=== PATIENT | female | born 1960 | race Caucasian/White ===

== ENCOUNTER 2016-12-02 05:30 | Emergency (ER) | payer BC ==
[~2016-12-02] VITALS: Ht 165.1 cm; Wt 115.7 kg
[2016-12-02] MEDS ORDERED: SING10TA32 PO (05:42)
[2016-12-02] MEDS ORDERED: PROZ40CA PO (05:42)
[2016-12-02] MEDS ORDERED: IBUP800T23 PO (05:42)
[2016-12-02] MEDS ORDERED: PRED20TA PO (06:01)
[2016-12-02] MEDS ORDERED: NS 1,000 ML IV ONE (06:15)
[2016-12-02] MEDS ORDERED: MECLIZINE 25 MG TABLET PO ONE (06:15)
[2016-12-02 06:42] LABS: BASO % 0.2 % (0.0-1.0); EOS # 0.1 K/mm3 (0.0-0.50); EOS % 0.9 % (0.0-3.0); LARGE UNSTAINED CELL # 0.1 K/mm3 (0.0-0.4); LARGE UNSTAINED CELL % 0.7 % (0.0-4.0); LYMPH # 0.9 K/mm3 (1.5-4.5); LYMPH % 8.8 % (24.0-44.0); MEAN CORPUSCULAR HEMOGLOBIN 28.2 pg (27.0-33.0); MEAN CORPUSCULAR HGB CONC 32.5 g/dl (32.0-36.5); MEAN CORPUSCULAR VOLUME 86.5 fl (80.0-96.0); MONO # 0.3 K/mm3 (0.0-0.8); MONO % 3.2 % (0.0-5.0); NEUTROPHILS # 8.8 K/mm3 (1.8-7.7); NEUTROPHILS % 86.2 % (36.0-66.0); PLATELET COUNT, AUTOMATED 278 k/mm3 (150-450); RED CELL DISTRIBUTION WIDTH 13.3 % (11.5-14.5); WHITE BLOOD COUNT 10.2 K/mm3 (4.0-10.0)
[2016-12-02 07:05] LABS: ANION GAP 7 MEQ/L (8-16); BLOOD UREA NITROGEN 13 MG/DL (7-18); CALCIUM LEVEL 8.7 MG/DL (8.5-10.1); CARBON DIOXIDE LEVEL 26 MEQ/L (21-32); CHLORIDE LEVEL 104 MEQ/L (98-107); CREATININE FOR GFR 0.71 MG/DL (0.55-1.02); GLOMERULAR FILTRATION RATE > 60.0 (>51); GLUCOSE, FASTING 115 MG/DL (70-105); POTASSIUM SERUM 3.7 MEQ/L (3.5-5.1); SODIUM LEVEL 137 MEQ/L (136-145)
[2016-12-02] MEDS ORDERED: MECL-68 PO (07:28)
[2016-12-02 07:42] VITALS: BP 171/82
--- NOTE | 2016-12-03 08:20 | ECGEPIP ---
Stationary ECG Study [facility] - ED Test Date: 2016-12-02 Pat Name: JAZLYN SHAH Department: Room: - Gender: F [place]: [place] : 1960 Requested By: RICK Bowles PA-C Order Number: [id number] Reading MD: Laina Aldana Measurements Intervals [place] Rate: 58 P: 19 W[place]: 185 QRS: -19 QRSD: 100 T: 3 QT: 412 QTc: 407 Interpretive Statements SINUS BRADYCARDIA VOLTAGE CRITERIA FOR LVH Electronically Signed On 12-03-2016 8:20:03 EDT by Laina Aldana
== END 2016-12-02 07:45 | disposition home or self-care (01) ==
LOC: EDBD 05:30 → M ED 06:08
DX: H81.399 Other peripheral vertigo, unspecified ear (principal); G51.0 Bell's palsy; J45.909 Unspecified asthma, uncomplicated; F32.9 Major depressive disorder, single episode, unspecified; Z88.2 Allergy status to sulfonamides; Z79.899 Other long term (current) drug therapy; I83.90 Asymptomatic varicose veins of unspecified lower extremity; K21.9 Gastro-esophageal reflux disease without esophagitis; M54.9 Dorsalgia, unspecified

== ENCOUNTER 2017-01-24 05:04 | Emergency (ER) | payer BC ==
[~2017-01-24] VITALS: Ht 162.6 cm; Wt 113.4 kg
[~2017-01-24 05:04] MED LIST: IBUP800T23 PO; MECL-68 PO; PRED20TA PO; PROZ40CA PO; SING10TA32 PO
[2017-01-24] MEDS ORDERED: CYCL10TA PO (05:14)
[2017-01-24] MEDS ORDERED: LEVE250T5 PO (05:14)
[2017-01-24] MEDS ORDERED: KETOROLAC 60 MG/2 ML VIAL (J1885) IM ONE (06:30)
[2017-01-24] MEDS ORDERED: VALI5TAB PO (07:08)
[2017-01-24] MEDS ORDERED: NAPR500T PO (07:08)
[2017-01-24 07:50] VITALS: BP 174/81
== END 2017-01-24 07:50 | disposition home or self-care (01) ==
LOC: M ED 06:21
DX: S29.012A Strain of muscle and tendon of back wall of thorax, initial encounter (principal); X58.XXXA Exposure to other specified factors, initial encounter; Y92.89 Other specified places as the place of occurrence of the external cause; Y93.89 Activity, other specified; Y99.9 Unspecified external cause status
CPT/HCPCS: 96372; 99283; J1885; J3360

== ENCOUNTER → 2017-01-26 | Outpatient (CLI) | payer BC ==
[~2017-01-26] MED LIST changes: +CYCL10TA PO; +LEVE250T5 PO; +NAPR500T PO; +VALI5TAB PO
--- NOTE | 2017-01-26 09:47 | REP ---
CHEST, TWO VIEWS: HISTORY: Lung nodule. COMPARISON: 08/18/2006 There is elevation of the right hemidiaphragm. The lungs are clear. The heart is upper limits of normal in size. The pulmonary vasculature is normal in appearance. The bony structure is intact. There is scoliosis of the upper thoracic spine convex to the left and mid and lower thoracic spine convex to the right. IMPRESSION: No acute disease. Signed by Efe Ingram MD 01/26/2017 10:07 A
== END ==
LOC: M WUC 08:01
PROVIDERS: ATTEND Physician Assistant Medical
DX: M41.9 Scoliosis, unspecified (principal)

== ENCOUNTER → 2017-03-03 | Outpatient (REF) | payer BC ==
[~2017-03-03] MED LIST changes: +IBUP1TAB7 PO; -IBUP800T23 PO
[2017-03-03 10:43] LABS: BASO % 0.1 % (0.0-1.0); EOS # 0.2 K/mm3 (0.0-0.50); EOS % 2.9 % (0.0-3.0); LARGE UNSTAINED CELL # 0.1 K/mm3 (0.0-0.4); LYMPH # 1.4 K/mm3 (1.5-4.5); LYMPH % 18.3 % (24.0-44.0); MEAN CORPUSCULAR HEMOGLOBIN 28.9 pg (27.0-33.0); MEAN CORPUSCULAR HGB CONC 33.5 g/dl (32.0-36.5); MEAN CORPUSCULAR VOLUME 86.4 fl (80.0-96.0); MONO # 0.3 K/mm3 (0.0-0.8); MONO % 3.8 % (0.0-5.0); NEUTROPHILS # 5.2 K/mm3 (1.8-7.7); NEUTROPHILS % 73.9 % (36.0-66.0); PLATELET COUNT, AUTOMATED 272 k/mm3 (150-450); RED CELL DISTRIBUTION WIDTH 13.5 % (11.5-14.5)
[2017-03-03 11:29] LABS: ERYTHROCYTE SEDIMENTATION RATE 26 mm/hr (0-30)
== END ==
LOC: M LABDRAW1 09:39
PROVIDERS: ATTEND Physician Assistant
DX: M51.36 Other intervertebral disc degeneration, lumbar region (principal)

== ENCOUNTER → 2017-08-30 | Outpatient (CLI) | payer BC | LOC: M WUC 08:58 | DX: R19.4 Change in bowel habit (principal); M41.85 Other forms of scoliosis, thoracolumbar region | CPT/HCPCS: 74018 ==

== ENCOUNTER 2018-01-23 07:34 | Day surgery (SDC) | payer BC ==
[2018-01-23] MEDS: NS 1,000 ML IV (07:45)
[2018-01-23] MEDS ORDERED: fentaNYL 100 MCG/2 ML INJECTION (J3010) As Ordered (09:11)
[2018-01-23] MEDS ORDERED: PROPOFOL 200 MG/20 ML VIAL As Ordered ×3 (09:37→09:40)
[2018-01-23] MEDS ORDERED: LIDOCAINE 2% INJ 100 MG/5 ML SDV (FOR ANES.) As Ordered (09:40)
== END 2018-01-23 10:22 | disposition home or self-care (01) ==
LOC: M OPP 07:34
DX: Z12.11 Encounter for screening for malignant neoplasm of colon (principal); D12.0 Benign neoplasm of cecum; D12.2 Benign neoplasm of ascending colon; K62.1 Rectal polyp; K64.8 Other hemorrhoids; K21.9 Gastro-esophageal reflux disease without esophagitis; K29.70 Gastritis, unspecified, without bleeding; K59.00 Constipation, unspecified; R19.7 Diarrhea, unspecified; M19.90 Unspecified osteoarthritis, unspecified site; F41.9 Anxiety disorder, unspecified; F32.9 Major depressive disorder, single episode, unspecified; R42 Dizziness and giddiness; J45.909 Unspecified asthma, uncomplicated; Z88.2 Allergy status to sulfonamides; Z79.899 Other long term (current) drug therapy
CPT/HCPCS: 45385

== ENCOUNTER → 2018-09-20 | Outpatient (CLI) | payer BC ==
[~2018-09-20] MED LIST changes: +DULO1CAP2 PO; +ESOM1CAP5 PO; +GABA-843 PO; +LORA0.5T11 PO; +NAPR-50 PO; -NAPR500T PO; +PROAAER10 INH
--- NOTE | 2018-09-20 21:51 | REP ---
Clinical: Symptoms related to atherosclerotic disease with cold foot. Technique: Real time smith scale and color Doppler evaluation of the bilateral lower extremity arterial vasculature using linear high frequency transducer. Findings: Smith scale and color images demonstrate mild age-related changes without focal stenosis identified. Doppler interrogation demonstrates normal triphasic arterial wave forms and velocities bilaterally. Left lower extremity demonstrates subcutaneous edema. Right ankle brachial index: 0.9 Left ankle brachial index: Could not be obtained due to diffuse edema. Peak systolic velocities (cm/sec) RIGHT LEFT Common femoral artery 105.8 101.1 Profunda femoris 64.8 65.5 SFA (proximal) 105.3 106.6 SFA (mid) 101.3 111.6 SFA (distal) 99.2 101.6 Popliteal artery 63.8 85.3 KATIE (prox.) 63.4 67.3 Tibioperoneal trunk 56.4 75.0 PAINTER ASSISTANT (prox.) 66.2 60.5 PAINTER ASSISTANT (distal) 100.8 90.9 KATIE (distal) 88.2 53.1 Impression: 1. Left lower extremity edema. 2. Normal bilateral triphasic arterial wave patterns and velocities without evidence for stenosis or occlusion. Electronically Signed by Juma Landaverde MD 09/20/2018 09:42 P
== END ==
LOC: M RAD 09:57
PROVIDERS: ATTEND Nurse Practitioner Family
DX: R60.0 Localized edema (principal)

== ENCOUNTER → 2018-10-09 | Outpatient (CLI) | payer BC ==
--- NOTE | 2018-10-09 12:18 | REP ---
PA and lateral chest: Comparison is 01/26/2017. Lung cannon are clear. Cardiac size is enlarged, unchanged. There is thoracic scoliosis convex right in the mid and lower thoracic areas, unchanged. There is chronic elevation of the right hemidiaphragm, unchanged, likely eventration. The amada, mediastinum, skeletal structures are unremarkable. Impression: Chronic cardiomegaly. Otherwise, negative PA and lateral chest. Electronically Signed by Jan Hoyos MD 10/09/2018 12:11 P
== END ==
LOC: M WUC 11:50
PROVIDERS: ATTEND Physician Assistant
DX: I51.7 Cardiomegaly (principal); J98.6 Disorders of diaphragm; M41.25 Other idiopathic scoliosis, thoracolumbar region

== ENCOUNTER → 2018-10-18 | Outpatient (CLI) | payer BC ==
[~2018-10-18] MED LIST changes: +METHACHOLINE KIT (J7674) INH ONE
--- NOTE | 2018-10-18 09:40 | PFTRPT ---
Height: 64.00 Inches Weight: 270.00 Lbs BSA: 2.22 Diagnosis: R06.00 DATE OF PROCEDURE: 10/18/2018 ORDERED BY: BOONE Luque INTERPRETATION: Study of excellent technical quality. Under protocol, methacholine was administered. At a dose of 2.5 mg or 13.875 CDUs, a 33% decline in the FEV1 was noted. PC of 0.42 is significant. Flow rates did return to baseline post bronchodilator administration. IMPRESSION: Positive methacholine challenge study. MTDD
== END ==
LOC: M CARPUL 08:35
PROVIDERS: ATTEND Physician Assistant
DX: R06.00 Dyspnea, unspecified (principal)
CPT/HCPCS: 94070; J7674

== ENCOUNTER → 2018-11-14 | Outpatient (REF) | payer BC ==
[~2018-11-14] MED LIST changes: -METHACHOLINE KIT (J7674) INH ONE
[2018-11-14 14:09] LABS: BASO % 0.4 % (0.0-1.0); EOS # 0.3 10^3/uL (0.0-0.50); EOS % 3.3 % (0.0-3.0); HEMATOCRIT 40.6 % (36.0-47.0); HEMOGLOBIN 12.5 g/dl (12.0-15.5); LYMPH # 1.3 10^3/uL (1.5-4.5); LYMPH % 15.6 % (24.0-44.0); MEAN CORPUSCULAR HEMOGLOBIN 27.4 pg (27.0-33.0); MEAN CORPUSCULAR HGB CONC 30.8 g/dl (32.0-36.5); MONO # 0.5 10^3/uL (0.0-0.8); MONO % 5.6 % (0.0-5.0); NEUTROPHILS # 5.9 10^3/uL (1.8-7.7); NEUTROPHILS % 74.3 % (36.0-66.0); PLATELET COUNT, AUTOMATED 300 10^3/uL (150-450); RED BLOOD COUNT 4.56 10^6/uL (4.00-5.40)
[2018-11-19 00:07] LABS: D001-IgE D pteronyssinus <0.10 kU/L (Class 0); E001-IgE Cat Epith/Dander < 0.10 kU/L (Class 0); E005-IgE Dog Dander < 0.10 kU/L (Class 0); G002-IgE Bermuda Grass < 0.10 kU/L (Class 0); G008-IgE Kentucky Bluegrass < 0.10 kU/L (Class 0); M001-IgE Penicillium chrysogen < 0.10 kU/L (Class 0); M002 IgE Cladosporium herbaru < 0.10 kU/L (Class 0); M003 IgE Aspergillus fumigatu < 0.10 kU/L (Class 0); M006-IgE Alternaria alternata < 0.10 kU/L (Class 0); T001-IgE Maple/Box Elder < 0.10 kU/L (Class 0); T003-IgE Common Silver Birch < 0.10 kU/L (Class 0); T006-IgE Cedar, Mountain < 0.10 kU/L (Class 0); T007-IgE Oak, White < 0.10 kU/L (Class 0); T008-IgE Elm, American < 0.10 kU/L (Class 0); T015-IgE Ash, White < 0.10 kU/L (Class 0); T041-IgE Hickory, White < 0.10 kU/L (Class 0); T070-IgE White Mulberry < 0.10 kU/L (Class 0); W001-IgE Ragweed, Short < 0.10 kU/L (Class 0); W009-IgE Plantain, English < 0.10 kU/L (Class 0); W014-IgE Pigweed, Rough < 0.10 kU/L (Class 0); W018-IgE Sheep Sorrel < 0.10 kU/L (Class 0)
== END ==
LOC: M LAB REF 13:08
PROVIDERS: ATTEND Internal Medicine Pulmonary Disease
DX: J45.40 Moderate persistent asthma, uncomplicated (principal)

== ENCOUNTER 2018-11-25 08:30 | Emergency (ER) | payer BC ==
[~2018-11-25] VITALS: Ht 160 cm; Wt 120.9 kg
[~2018-11-25 08:30] MED LIST changes: -NAPR-50 PO; +NAPR-837 PO
[2018-11-25] MEDS ORDERED: OMEP40CA2 (08:40)
[2018-11-25] MEDS ORDERED: BREO1INH3 (08:40)
[2018-11-25] MEDS ORDERED: ONDA4TAB6 (08:40)
[2018-11-25] MEDS ORDERED: ACET500T15 PO (08:40)
[2018-11-25] MEDS ORDERED: ENOX40IN3 (08:40)
[2018-11-25] MEDS ORDERED: FLUT22IN (08:40)
[2018-11-25] MEDS ORDERED: NS 1,000 ML IV ONE (09:00)
[2018-11-25 09:27] LABS: BASO % 0.3 % (0.0-1.0); EOS # 0.2 10^3/uL (0.0-0.50); EOS % 1.8 % (0.0-3.0); HEMATOCRIT 38.1 % (36.0-47.0); HEMOGLOBIN 12.3 g/dl (12.0-15.5); LYMPH # 1.5 10^3/uL (1.5-4.5); LYMPH % 12.7 % (24.0-44.0); MEAN CORPUSCULAR HEMOGLOBIN 27.8 pg (27.0-33.0); MEAN CORPUSCULAR HGB CONC 32.3 g/dl (32.0-36.5); MEAN CORPUSCULAR VOLUME 86.2 fl (80.0-96.0); MONO # 0.8 10^3/uL (0.0-0.8); MONO % 6.6 % (0.0-5.0); NEUTROPHILS # 9.1 10^3/uL (1.8-7.7); NEUTROPHILS % 77.8 % (36.0-66.0); PLATELET COUNT, AUTOMATED 286 10^3/uL (150-450); RED BLOOD COUNT 4.42 10^6/uL (4.00-5.40); WHITE BLOOD COUNT 11.7 10^3/uL (4.0-10.0)
[2018-11-25] MEDS: GASTROGRAFIN SOLUTION 30ML PO SCH ×2 (09:30→10:28)
[2018-11-25 09:37] LABS: INR 1.05; PROTHROMBIN TIME 13.8 SECONDS (12.1-14.4)
[2018-11-25 09:38] LABS: PARTIAL THROMBOPLASTIN TIME 32.9 SECONDS (25.4-37.6)
[2018-11-25 09:56] LABS: ALBUMIN 3.3 GM/DL (3.2-5.2); ALT/SGPT 33 U/L (12-78); AMYLASE 21 U/L (25-115); BILIRUBIN,DIRECT 0.4 MG/DL (0.0-0.2); BILIRUBIN,TOTAL 1.2 MG/DL (0.2-1.0); BLOOD UREA NITROGEN 16 MG/DL (7-18); CALCIUM LEVEL 8.4 MG/DL (8.5-10.1); CARBON DIOXIDE LEVEL 24 MEQ/L (21-32); CHLORIDE LEVEL 102 MEQ/L (98-107); CREATININE FOR GFR 0.84 MG/DL (0.55-1.30); GLOMERULAR FILTRATION RATE > 60.0 (>51); GLUCOSE, FASTING 77 MG/DL (70-100); LIPASE 83 U/L (73-393); POTASSIUM SERUM 3.6 MEQ/L (3.5-5.1); SODIUM LEVEL 137 MEQ/L (136-145); TOTAL PROTEIN 7.3 GM/DL (6.4-8.2)
[2018-11-25] MEDS ORDERED: ISOVUE-370 76% 125ML VIAL (Q9967 PER ML) As Ordered ONE (10:51)
--- NOTE | 2018-11-25 11:38 | REP ---
Clinical: Lower abdominal pain. Technique: Axial contrast enhanced images from the lung bases to the pubic symphysis using oral and 100 ml Isovue 370 intravenous contrast material with coronal and sagittal re-formations. Comparison: None. Findings: The distal sigmoid colon within the deep pelvis demonstrates mural thickening and pericolonic inflammatory stranding as well as suspected abscess measuring 9.2 cm maximal diameter within the adjacent deep posterior cul-de-sac extending between in the rectum and residual vaginal cuff (images 101 - 135). Liver, spleen, gallbladder, bilateral adrenal glands and kidneys are normal. Spleen demonstrates innumerable hypodensities which require further investigation and include both infectious as well as neoplastic etiologies. The patient is noted to be status post gastric bypass surgery and hysterectomy. The remainder of the small and large bowel is grossly unremarkable. Chronic-appearing postsurgical changes in the periumbilical subcutaneous tissue noted. No ascites. No free air. No significant adenopathy. Abdominal aorta and vasculature without aneurysm or dissection. Osseous structures are intact. Lung bases demonstrate nonspecific fiber atelectatic changes in the left base as well as 2 mm nodule in the periphery of the right lower lobe (image 6). Impression: 1. Focal infectious/inflammatory changes involving the distal sigmoid colon to the rectosigmoid junction with 9.2 cm fluid collection suggesting abscess as detailed above. 2. Spleen demonstrates innumerable rounded hypodense lesions up to approximately 2 cm. No prior examinations available for comparison. Differential include both infectious as well as neoplastic etiologies. Follow-up is recommended. 3. Further chronic changes as described above. 4. Findings at the lung bases including noncalcified nodule in the periphery of the right lower lobe warrants short-term follow-up contrast enhanced chest CT for further investigation. Electronically Signed by Juma Landaverde MD 11/25/2018 11:30 A
[2018-11-25] MEDS ORDERED: PIPERACILLIN/TAZOBACTAM SOD 3.375 GM in D5W MINI-BAG PLUS 50 ML IV ONE (11:45)
[2018-11-25] MEDS ORDERED: MORPHINE 4 MG/ML 1ML VIAL/SYRINGE (J2270) IV ONE ×2 (11:45→14:15)
[2018-11-25 14:45] VITALS: BP 129/60
== END 2018-11-25 14:55 | disposition short-term general hospital (02) ==
LOC: M ED 08:30
DX: K63.0 Abscess of intestine (principal); K95.89 Other complications of other bariatric procedure; T81.40XA Infection following a procedure, unspecified, initial encounter; J45.909 Unspecified asthma, uncomplicated; F33.9 Major depressive disorder, recurrent, unspecified; F41.9 Anxiety disorder, unspecified; K21.9 Gastro-esophageal reflux disease without esophagitis; Z79.51 Long term (current) use of inhaled steroids; Z79.899 Other long term (current) drug therapy; Z88.2 Allergy status to sulfonamides; Z88.1 Allergy status to other antibiotic agents
CPT/HCPCS: 36415; 74177; 80048; 80076; 81001; 82150; 83605; 83690; 85025; 85610; 85730; 87086; 96365; 96366; 96375; 96376; 99284; J2270; J2543; Q9963; Q9967

== ENCOUNTER → 2018-12-05 | Outpatient (CLI) | payer BC ==
[~2018-12-05] MED LIST changes: +ACET500T15 PO; +BREO1INH3; +ENOX40IN3; +FLUT22IN; +GASTROGRAFIN SOLUTION 30ML (Q9963) As Ordered ONE; +ISOVUE-370 76% 100ML VIAL (Q9967) As Ordered ONE; +OMEP40CA2; +ONDA4TAB6
--- NOTE | 2018-12-05 10:45 | REP ---
CT of the abdomen and pelvis with IV contrast for follow up of pelvic abscess: Comparison is 11/25/2018. The pelvic abscess has significantly decreased in size today measuring 4.2 cm in diameter. This previously measured 9.2 cm in diameter. There is no pelvic ascites or adenopathy. There is a hysterectomy. Vaginal cuff and adnexa are unremarkable and unchanged. The pelvic bowel loops are unremarkable. The visualized lung cannon are unremarkable. The liver, gallbladder and pancreas are unremarkable and unchanged. Spleen is normal size but contains multiple small hypodense lesions as previously. This is nonspecific and could represent R I N infectious or neoplastic lesions. The adrenals, kidneys and abdominal aorta are unremarkable. The bowel and mesentery are unremarkable. There is evidence for bariatric surgery as previously. There is wall thickening of the transverse colon, nonspecific, but could represent colitis in the appropriate clinical setting. Impression: The known pelvic abscess has significantly decreased in size. There is wall thickening of the transverse colon, nonspecific but could represent colitis in the appropriate clinical setting, as an interval change. Multiple small low density lesions throughout the spleen, unchanged, nonspecific but could represent a variety of infectious or neoplastic etiologies. The spleen is normal size. Bariatric surgery. Electronically Signed by Jan Hoyos MD 12/05/2018 10:37 A
== END ==
LOC: M RAD 08:28
PROVIDERS: ATTEND Internal Medicine
DX: K63.0 Abscess of intestine (principal)
CPT/HCPCS: 74177; Q9963; Q9967

== ENCOUNTER → 2018-12-21 | Outpatient (CLI) | payer BC ==
[~2018-12-21] MED LIST changes: -GASTROGRAFIN SOLUTION 30ML (Q9963) As Ordered ONE
--- NOTE | 2018-12-21 14:13 | REP ---
CT ABDOMEN AND PELVIS WITH IV WITHOUT ORAL CONTRAST: HISTORY: Abdomen pain. COMPARISON STUDY: December 05, 2018 and October 28, 2018. February 01, 2008 CT study is also reviewed. CT CONTRAST DOSE: 100 mL of intravenous Isovue [address] FINDINGS: Digital preliminary washroom attendant radiograph is unremarkable. Normal bowel gas pattern is seen. The lung bases show mild platelike atelectasis in the left lower lobe versus scarring. No pleural effusion is seen. The liver is normal in size. There is a stable 2.1 cm low density area in the right lobe of the liver posteriorly. This is unchanged from the 2007 prior study and is most likely a hemangioma. No other focal hepatic lesion is seen. The gallbladder is unremarkable. No pancreatic lesion is observed. Innumerable small low-density lesions are scattered throughout the spleen as on the two recent prior CT studies. These do not appear to be changing. They are new when compared with the 2007 prior study. The patient is status post gastric bypass. No adrenal lesion is seen. No retroperitoneal mass or adenopathy is observed. No abdominal wall defect is seen. Pelvic CT images demonstrate that the previously noted pelvic fluid collection continues to decrease in size. It measures only 2.3 cm in greatest transverse dimension today, previously 4.2 cm on December 05, 2018 and 9.2 cm on November 25, 2018. No new fluid collection is appreciated. No bony destructive lesion is seen. IMPRESSION: Continued decrease in the size of pelvic fluid collection, now only 2.3 cm in greatest diameter. Numerous focal low density splenic lesions again noted, unchanged from November 25, 2018. These are new when compared with 2007 prior study. Electronically Signed by José Granger MD 12/21/2018 04:43 P
== END ==
LOC: M RAD 13:02
PROVIDERS: ATTEND Surgery
DX: K63.0 Abscess of intestine (principal)
CPT/HCPCS: 74177; Q9967

== ENCOUNTER 2019-01-22 04:33 | Emergency (ER) | payer BC, MEDICARE ==
[~2019-01-22] VITALS: Ht 160 cm; Wt 109.1 kg
[~2019-01-22 04:33] MED LIST changes: -ISOVUE-370 76% 100ML VIAL (Q9967) As Ordered ONE
[2019-01-22] MEDS ORDERED: MISO100T22 (04:40)
[2019-01-22] MEDS ORDERED: MONT10TA2 (04:40)
[2019-01-22] MEDS ORDERED: SUCR1TAB56 (04:40)
[2019-01-22] MEDS ORDERED: OMEP-221 (04:40)
[2019-01-22] MEDS ORDERED: ONDANSETRON 4MG/2ML VIAL (J2405) As Ordered ONE (05:10)
[2019-01-22] MEDS ORDERED: KETOROLAC 30 MG/ML VIAL (J1885) As Ordered ONE (05:10)
[2019-01-22] MEDS ORDERED: ONDANSETRON 4MG/2ML VIAL (J2405) IV ONE (05:15)
[2019-01-22] MEDS ORDERED: KETOROLAC 30 MG/ML VIAL (J1885) IV ONE (05:15)
[2019-01-22 05:17] LABS: BASO % 0.3 % (0.0-1.0); EOS # 0.2 10^3/uL (0.0-0.50); EOS % 3.2 % (0.0-3.0); HEMATOCRIT 41.3 % (36.0-47.0); HEMOGLOBIN 13.2 g/dl (12.0-15.5); LYMPH # 1.5 10^3/uL (1.5-4.5); LYMPH % 23.2 % (24.0-44.0); MEAN CORPUSCULAR HEMOGLOBIN 28.4 pg (27.0-33.0); MONO # 0.6 10^3/uL (0.0-0.8); MONO % 8.7 % (0.0-5.0); NEUTROPHILS # 4.2 10^3/uL (1.8-7.7); NEUTROPHILS % 64.1 % (36.0-66.0); PLATELET COUNT, AUTOMATED 293 10^3/uL (150-450); RED BLOOD COUNT 4.64 10^6/uL (4.00-5.40); WHITE BLOOD COUNT 6.5 10^3/uL (4.0-10.0)
[2019-01-22 05:43] LABS: ALBUMIN 3.8 GM/DL (3.2-5.2); ALT/SGPT 18 U/L (12-78); BILIRUBIN,DIRECT 0.2 MG/DL (0.0-0.2); BILIRUBIN,TOTAL 0.9 MG/DL (0.2-1.0); BLOOD UREA NITROGEN 15 MG/DL (7-18); CALCIUM LEVEL 9.1 MG/DL (8.5-10.1); CARBON DIOXIDE LEVEL 22 MEQ/L (21-32); CHLORIDE LEVEL 108 MEQ/L (98-107); CREATININE FOR GFR 0.76 MG/DL (0.55-1.30); GLOMERULAR FILTRATION RATE > 60.0 (>51); GLUCOSE, FASTING 117 MG/DL (70-100); LIPASE 127 U/L (73-393); SODIUM LEVEL 141 MEQ/L (136-145); TOTAL PROTEIN 6.9 GM/DL (6.4-8.2)
[2019-01-22] MEDS ORDERED: NS 1,000 ML IV ONE (06:15)
[2019-01-22] MEDS: MORPHINE 4 MG/ML 1ML VIAL/SYRINGE (J2270) IV PRN ×2 (06:27→07:41)
--- NOTE | 2019-01-22 07:16 | REPVR ---
EXAM: CT Abdomen and Pelvis Without Contrast EXAM DATE/TIME: 01/22/2019 6:36 AM CLINICAL HISTORY: 58 years old, female; Abdominal pain; Flank; Right; Additional info: Right sided flank/abd pain, hematuria TECHNIQUE: Imaging protocol: Axial computed tomography images of the abdomen and pelvis without contrast. Coronal and sagittal reformatted images were created and reviewed. Radiation optimization: All CT scans at this facility use at least one of these dose optimization techniques: automated exposure control; mA and/or kV adjustment per patient size (includes targeted exams where dose is matched to clinical indication); or iterative reconstruction. COMPARISON: CT ABD/PEL W/IV CONTRAST ONLY 12/21/2018 1:36 PM FINDINGS: Lungs: Interstitial prominence and trace airspace disease. Cardiomegaly. ABDOMEN: Detailed evaluation of the abdominal and pelvic viscera is somewhat limited in the absence of intravenous contrast. Liver: Fatty infiltration of the liver. Decreased conspicuity of 1.7 cm nodular hypodense lesion right hepatic lobe in the absence of intravenous contrast. Gallbladder and bile ducts: Gallbladder dilatation without cholelithiasis or biliary ductal dilatation. Pancreas: No pancreatic mass or ductal dilatation. Spleen: Decrease conspicuity of previously visualized splenic hypodensities in the absence of contrast. Borderline splenomegaly. Adrenals: Unremarkable adrenals. Kidneys and ureters: Moderate right hydronephrosis with a 1 mm calculus in the region of the right trigone. Mild infiltration of right perinephric fat. Stomach and bowel: Status post gastric bypass with stable jejunal dilatation at the surgical anastomotic site. Diverticula, without pericolonic inflammation. Appendix: No acute appendicitis. PELVIS: Bladder: Nondistended bladder. Reproductive: Status post hysterectomy. ABDOMEN and PELVIS: Intraperitoneal space: Residual 1.6 cm nodular hypodensity in the pelvis, which previously measured 2.4 cm. Bones/joints: Degenerative change and lumbar levoscoliosis. Soft tissues: Small fat containing umbilical hernia. Calcification at the gluteal muscle attachment sites. Vasculature: Normal caliber of the abdominal aorta. Lymph nodes: Subcentimeter lymph nodes. IMPRESSION: 1. Moderate right hydronephrosis with a 1 mm calculus in the region of the right trigone. 2. Additional findings as described above. Electronically signed by: Frank Infante On 01/22/2019 07:15:44 AM
[2019-01-22] MEDS ORDERED: PROMETHAZINE INJ 25 MG/ML VIAL (J2550) IV ONE (07:30)
[2019-01-22] MEDS ORDERED: MORPHINE 4 MG/ML 1ML VIAL/SYRINGE (J2270) IV PRN (07:30)
[2019-01-22] MEDS ORDERED: PERCOCET 5MG/325MG TAB PO ONE (07:45)
[2019-01-22] MEDS ORDERED: PERC5TAB12 PO (07:46)
[2019-01-22] MEDS ORDERED: FLOM0.4C39 PO (07:50)
[2019-01-22] MEDS ORDERED: ZOFR4TAB16 PO (08:43)
[2019-01-22 08:50] VITALS: BP 135/79
== END 2019-01-22 08:51 | disposition home or self-care (01) ==
LOC: M ED 04:33
DX: N20.1 Calculus of ureter (principal); J45.909 Unspecified asthma, uncomplicated; F41.1 Generalized anxiety disorder; K27.9 Peptic ulcer, site unspecified, unspecified as acute or chronic, without hemorrhage or perforation; I73.9 Peripheral vascular disease, unspecified; G89.29 Other chronic pain; M54.9 Dorsalgia, unspecified; Z98.84 Bariatric surgery status; Z79.899 Other long term (current) drug therapy; Z88.1 Allergy status to other antibiotic agents; Z88.2 Allergy status to sulfonamides
CPT/HCPCS: 74176; 80048; 80076; 81001; 83690; 85025; 96374; 96375; 96376; 99284; J1885; J2270; J2405

== ENCOUNTER → 2019-01-30 | Outpatient (CLI) | payer MEDICARE ==
[~2019-01-30] MED LIST changes: +FLOM0.4C39 PO; +MISO100T22; +MONT10TA2; +OMEP-221; +PERC5TAB12 PO; +SUCR1TAB56; +ZOFR4TAB16 PO
[2019-01-30 13:26] LABS: BASO % 0.3 % (0.0-1.0); EOS # 0.2 10^3/uL (0.0-0.50); EOS % 2.7 % (0.0-3.0); HEMATOCRIT 41.6 % (36.0-47.0); HEMOGLOBIN 13.3 g/dl (12.0-15.5); LYMPH # 1.4 10^3/uL (1.5-4.5); LYMPH % 17.7 % (24.0-44.0); MEAN CORPUSCULAR HEMOGLOBIN 29.3 pg (27.0-33.0); MEAN CORPUSCULAR VOLUME 91.6 fl (80.0-96.0); MONO # 0.5 10^3/uL (0.0-0.8); MONO % 6.3 % (0.0-5.0); NEUTROPHILS # 5.7 10^3/uL (1.8-7.7); NEUTROPHILS % 72.6 % (36.0-66.0); PLATELET COUNT, AUTOMATED 264 10^3/uL (150-450); RED BLOOD COUNT 4.54 10^6/uL (4.00-5.40); WHITE BLOOD COUNT 7.8 10^3/uL (4.0-10.0)
[2019-01-30 14:04] LABS: ALBUMIN 3.6 GM/DL (3.2-5.2); ALT/SGPT 18 U/L (12-78); BILIRUBIN,DIRECT 0.2 MG/DL (0.0-0.2); BILIRUBIN,TOTAL 0.7 MG/DL (0.2-1.0); FERRITIN 46 NG/ML (8-252); IRON (FE) 43 UG/DL (50-170); PERCENT SATURATION 12.8 % (13.2-45.0); TOTAL IRON BINDING CAPACITY 335 UG/DL (250-450); TOTAL PROTEIN 7.1 GM/DL (6.4-8.2)
[2019-01-30 14:06] LABS: HEPATITIS B SURFACE ANTIBODY POSITIVE (POSITIVE)
[2019-01-30 14:16] LABS: HEPATITIS B SURFACE ANTIGEN NEGATIVE (NEGATIVE)
[2019-02-04 11:06] LABS: ANGIOTENSIN 1 CONVERTING ENZYM 47 U/L (14-82); ANTI-MITOCHONDRIAL ANTIBODY <20.0 Units (0.0-20.0); ANTI-SMOOTH MUSCLE ANTIBODY 5 Units (0-19); ANTINUCLEAR ANTIBODIES DIRECT Negative (Negative); E. HISTOLYTICA SERUM ANTIBODY Negative (Negative); HISTOPLASMOSIS ANTIBODY Negative (Neg:<1:1); LIVER-KIDNEY MICROSOMAL ABY <20.1 Units (0.0-20.0)
== END ==
LOC: M LAB 12:28
PROVIDERS: ATTEND Internal Medicine Gastroenterology
DX: R94.5 Abnormal results of liver function studies (principal)
CPT/HCPCS: 36415; 80076; 82164; 82728; 83550; 85025; 86038; 86255; 86376; 86698; 86706; 86753; 87340; 87385; G0472

== ENCOUNTER → 2019-02-01 | Outpatient (CLI) | payer MEDICARE ==
--- NOTE | 2019-02-01 11:40 | REP ---
RIGHT UPPER QUADRANT ULTRASOUND: Real-time sonographic evaluation of right upper quadrant performed. Gallbladder demonstrates no evidence of intraluminal sludge or calculi, wall thickening, or pericholecystic fluid. There is no intrahepatic or extrahepatic biliary dilatation, common bile duct measuring 4 mm in diameter. Liver demonstrates mildly increased echotexture diffusely suggesting some degree of fibrofatty infiltration. There is a subcentimeter nodule in the left lobe of the liver with a hyperechoic rim and hypoechoic center. It measures 7 x 9 x 7 mm and is of doubtful significance. I do not see a suspicious nodule on the recent CT exams, most recently 01/22/2019 and 12/21/2018. Pancreas appears unremarkable. Right kidney demonstrates no hydronephrosis with normal size 10.8 cm in length. Visualized abdominal aorta is normal in caliber. There is no ascites. IMPRESSION: Findings suggesting mild diffuse fibrofatty infiltration. Subcentimeter hypoechoic nodule left lobe is of doubtful significance. No suspicious nodule is seen on recent CT exams. Followup ultrasound may be obtained in 6 months. Electronically Signed by Jan Smith MD 02/05/2019 09:44 A
== END ==
LOC: M RAD 07:33
PROVIDERS: ATTEND Internal Medicine Gastroenterology
DX: K76.0 Fatty (change of) liver, not elsewhere classified (principal); K76.89 Other specified diseases of liver

== ENCOUNTER → 2019-02-04 | Outpatient (REF) | payer MEDICARE ==
[2019-02-04 19:29] LABS: APPEARANCE, URINE HAZY (CLEAR); BACTERIA, URINE AUTO NEGATIVE (NEGATIVE); BILIRUBIN, URINE AUTO NEGATIVE (NEGATIVE); BLOOD, URINE BLOOD NEGATIVE (NEGATIVE); CALCIUM OXALATE CRYSTALS LARGE; COLOR, URINE AMBER (YELLOW); GLUCOSE, URINE (UA) AUTO NEGATIVE (NEGATIVE); KETONE, URINE AUTO TRACE mg/dL (NEGATIVE); LEUKOCYTE ESTERASE, URINE AUTO NEGATIVE (NEGATIVE); MUCUS, URINE SMALL (NEGATIVE); NITRITE, URINE AUTO NEGATIVE (NEGATIVE); PROTEIN, URINE AUTO NEGATIVE (NEGATIVE); RBC, URINE AUTO 2 /HPF (0-3); SPECIFIC GRAVITY URINE AUTO 1.028 (1.002-1.035); SQUAMOUS EPITHELIAL CELL UR AU 2 /HPF (0-6); WBC, URINE AUTO 2 /HPF (0-3)
== END ==
LOC: M SMT 17:31
PROVIDERS: ATTEND Nurse Practitioner Family
DX: N20.0 Calculus of kidney (principal)
CPT/HCPCS: 81001; 87086; G0463

== ENCOUNTER → 2019-02-11 | Outpatient (CLI) | payer MEDICARE ==
--- NOTE | 2019-02-11 08:33 | REP ---
LEFT UPPER QUADRANT ULTRASOUND: Real-time sonographic evaluation of the left upper quadrant was performed and compared to prior CT exams 11/25/2018 and 12/21/2018. Spleen measures 10.3 x 4.1 x 9.4 cm. Multiple hypoechoic nodules are seen throughout the spleen. The larges is approximately 1.8 cm in maximum diameter similar to the CT scan. The left kidney appears normal in size and echotexture at 10.8 x 5.2 x 6.9 cm. There is no hydronephrosis, renal mass, or nephrolithiasis. No free fluid is seen in the left upper quadrant. IMPRESSION: Multiple hypoechoic nodules seen throughout the spleen, not grossly changed compared to prior CT 11/25/2017. Electronically Signed by Jan Smith MD 02/11/2019 08:43 A
== END ==
LOC: M RAD 07:27
PROVIDERS: ATTEND Internal Medicine
DX: D73.89 Other diseases of spleen (principal)

== ENCOUNTER → 2019-07-30 | Outpatient (CLI) | payer MEDICARE ==
[~2019-07-30] MED LIST changes: -DULO1CAP2 PO; +DULO1CAP5 PO; -OMEP40CA2; +OMEP40CA97
--- NOTE | 2019-07-30 09:42 | REP ---
Clinical: Abnormal liver function tests. Technique: Real time sanabria scale ultrasound examination using curved array transducer. Findings: The liver is relatively normal in appearance. However there is a vague 9 mm hyperechoic area identified on sagittal images which is not confirmed on transverse image but appears to be relatively stable/similar to finding on 02/01/2019 examination. No further hepatic lesions are identified. The gallbladder is normal and without gallstones, wall thickening, or pericholecystic fluid. No biliary ductal dilatation is appreciated and the common bile duct measures 4.9 mm diameter. Pancreas is incompletely evaluated due to interposed bowel gas but visualized portions appear normal. The right kidney is unremarkable and measures 10.6 x 4.9 x 4.5 cm. No ascites. Impression: 1. Vague subcentimeter hyperechoic area in the liver similar to 02/01/2019. Finding may reflect the known hemangioma which was identified on multiple prior contrast enhanced CT examinations. 2. Otherwise unremarkable right upper quadrant/liver ultrasound. Electronically Signed by Juma Landaverde MD 07/30/2019 09:33 A
== END ==
LOC: M RAD 07:55
PROVIDERS: ATTEND Internal Medicine Gastroenterology
DX: R94.5 Abnormal results of liver function studies (principal)

== ENCOUNTER → 2019-07-30 | Outpatient (CLI) | payer MEDICARE ==
[2019-07-30 15:15] LABS: ALBUMIN 3.5 GM/DL (3.2-5.2); BILIRUBIN,DIRECT 0.2 MG/DL (0.0-0.2); BILIRUBIN,TOTAL 0.8 MG/DL (0.2-1.0); TOTAL PROTEIN 6.7 GM/DL (6.4-8.2)
== END ==
LOC: M LAB 13:37
PROVIDERS: ATTEND Internal Medicine Gastroenterology
DX: R94.5 Abnormal results of liver function studies (principal)

== ENCOUNTER → 2019-11-11 | Outpatient (REF) | payer MEDICARE ==
[~2019-11-11] MED LIST changes: -LORA0.5T11 PO; +LORA0.5T5 PO; -MECL-68 PO; +MECL1TAB31 PO; -MONT10TA2; +MONT10TA4
[2019-11-11 13:15] LABS: HEMATOCRIT 43.2 % (36.0-47.0)
[2019-11-11 13:28] LABS: PERCENT SATURATION 27.8 % (13.2-45.0); PHOSPHORUS LEVEL 3.7 MG/DL (2.5-4.9)
== END ==
LOC: M LAB REF 12:50
PROVIDERS: ATTEND Internal Medicine
DX: K91.2 Postsurgical malabsorption, not elsewhere classified (principal); Z98.84 Bariatric surgery status; E55.9 Vitamin D deficiency, unspecified

== ENCOUNTER → 2020-02-21 | Outpatient (REF) | payer MEDICARE ==
[~2020-02-21] MED LIST changes: +CYCL-707 PO; -CYCL10TA PO
[2020-02-21 12:14] LABS: HEMATOCRIT 39.4 % (36.0-47.0)
[2020-02-21 12:55] LABS: FOLATE 8.4 NG/ML; PERCENT SATURATION 15.3 % (13.2-45.0); PHOSPHORUS LEVEL 3.2 MG/DL (2.5-4.9)
== END ==
LOC: M LAB REF 11:11
PROVIDERS: ATTEND Internal Medicine
DX: K91.2 Postsurgical malabsorption, not elsewhere classified (principal); Z98.84 Bariatric surgery status; Z86.39 Personal history of other endocrine, nutritional and metabolic disease

== ENCOUNTER → 2020-09-22 | Outpatient (REF) | payer MEDICARE ==
[~2020-09-22] MED LIST changes: +GABA-282 PO; -GABA-843 PO; +MONT10TA10; -MONT10TA4
[2020-09-22 13:46] LABS: HEMATOCRIT 41.3 % (36.0-47.0)
[2020-09-22 14:11] LABS: PERCENT SATURATION 26.3 % (13.2-45.0); PHOSPHORUS LEVEL 4.1 MG/DL (2.5-4.9)
== END ==
LOC: M LAB REF 12:40
PROVIDERS: ATTEND Internal Medicine
DX: K91.2 Postsurgical malabsorption, not elsewhere classified (principal); G50.0 Trigeminal neuralgia; Z86.39 Personal history of other endocrine, nutritional and metabolic disease; Z98.84 Bariatric surgery status

== ENCOUNTER → 2021-01-31 | Outpatient (CLI) | payer MEDICARE ==
[~2021-01-31] MED LIST changes: +MAGN400T2; +OXCA150T21
== END ==
LOC: M LABSMTC 10:20
PROVIDERS: ATTEND Anesthesiology
DX: Z01.812 Encounter for preprocedural laboratory examination (principal); Z20.822 Contact with and (suspected) exposure to COVID-19

== ENCOUNTER 2021-02-05 07:52 | Day surgery (SDC) | payer MEDICARE ==
[~2021-02-05] VITALS: Ht 160 cm; Wt 100.6 kg
[~2021-02-05 07:52] MED LIST changes: +NS 1,000 ML IV ONE
[2021-02-05] MEDS ORDERED: FAMO40TA3 PO (08:30)
--- NOTE | 2021-02-05 09:48 | ROOR ---
Patient Name: Rose Mary Viramontes Procedure Date: 02/05/2021 8:58 AM Date of : 1960 Age: 60 Room: [facility] Gender: Female Note Status: Finalized Procedure: Upper GI endoscopy Indications: Dyspepsia, Heartburn Providers: Edgardo Pike MD Referring MD: BRIANNA ARREGUIN JR, MD Requesting Provider: Medicines: Monitored Anesthesia Care Complications: No immediate complications. Procedure: Pre-Anesthesia Assessment: - Prior to the procedure, a History and Physical was performed, and patient medications and allergies were reviewed. The patient is competent. The risks and benefits of the procedure and the sedation options and risks were discussed with the patient. All questions were answered and informed consent was obtained. Patient identification and proposed procedure were verified by the physician, the nurse and the anesthesiologist in the procedure room. Mental Status Examination: alert and oriented. Airway Examination: normal oropharyngeal airway and neck mobility. Respiratory Examination: clear to auscultation. CV Examination: normal. Prophylactic Antibiotics: The patient does not require prophylactic antibiotics. Prior Anticoagulants: The patient has taken no previous anticoagulant or antiplatelet agents. ASA Grade Assessment: II - A patient with mild systemic disease. After reviewing the risks and benefits, the patient was deemed in satisfactory condition to undergo the procedure. The anesthesia plan was to use monitored anesthesia care (MAC). Immediately prior to administration of medications, the patient was re-assessed for adequacy to receive sedatives. The heart rate, respiratory rate, oxygen saturations, blood pressure, adequacy of pulmonary ventilation, and response to care were monitored throughout the procedure. The physical status of the patient was re-assessed after the procedure. The Endoscope was introduced through the mouth, and advanced to the afferent and efferent jejunal loops. The upper GI endoscopy was accomplished without difficulty. The patient tolerated the procedure well. Findings: Mucosal changes including longitudinal furrows, small-caliber esophagus and white plaques were found in the middle third of the esophagus and in the lower third of the esophagus. Biopsies were obtained from the proximal and distal esophagus with cold forceps for histology of suspected eosinophilic esophagitis. Evidence of a gastric bypass was found. A gastric pouch with a small size was found. The staple line appeared intact. The gastrojejunal anastomosis was characterized by healthy appearing mucosa and an intact staple line. This was traversed. The enmhy-cb-jkimato limb was characterized by healthy appearing mucosa. The jejunojejunal anastomosis was characterized by ulceration. The lplhxnod-gk-soseltb limb was not examined as it could not be found. Two biopsies were obtained in the gastric fundus with cold forceps for histology. Verification of patient identification for the specimen was done by the physician and nurse using the patient's name, date and medical record number. Estimated blood loss was minimal. Two non-bleeding superficial ulcers with a clean ulcer base (Ravindra Class III) were found distal to the gastrojejunal anastomosis. Impression: - Esophageal mucosal changes suggestive of eosinophilic esophagitis. Biopsied. - Gastric bypass with a small-sized pouch and intact staple line. Gastrojejunal anastomosis characterized by healthy appearing mucosa and an intact staple line. 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 - Two biopsies were obtained in the gastric fundus. Recommendation: - Patient has a contact number available for emergencies. The signs and symptoms of potential delayed complications were discussed with the patient. Return to normal activities tomorrow. Written discharge instructions were provided to the patient. - Post gastric bypass diet (small frequent meals and avoid fatty/ fried foods). - Continue present medications. - Use sucralfate suspension 1 gram PO QID for 2 months. - Await pathology results. - Telephone GI clinic for pathology results in 2 weeks. - Return to GI clinic if persistent symptoms or new symptoms. - Return to primary care physician. Procedure Code(s): --- Professional --- 91909, Esophagogastroduodenoscopy, flexible, transoral; with biopsy, single or multiple Diagnosis Code(s): --- Professional --- K22.8, Other specified diseases of esophagus Z98.84, Bariatric surgery status K28.9, Gastrojejunal ulcer, unspecified as acute or chronic, without hemorrhage or perforation R10.13, Epigastric pain R12, Heartburn CPT copyright 2019 [employer]. All rights reserved. The codes documented in this report are preliminary and upon site acquisition specialist review may be revised to meet current compliance requirements. Edgardo Pike MD Edgardo Pike MD 02/05/2021 9:47:32 AM Electronically signed by Edgardo Pike MD Number of Addenda: 0 Note Initiated On: 02/05/2021 8:58 AM Estimated Blood Loss: Estimated blood loss was minimal.
--- NOTE | 2021-02-05 10:02 | ROOR ---
Patient Name: Rose Mary Viramontes Procedure Date: 02/05/2021 8:59 AM Date of : 1960 Age: 60 Room: [facility] Gender: Female Note Status: Finalized Procedure: Colonoscopy Indications: High risk colon cancer surveillance: Personal history of colonic polyps, Surveillance: Personal history of adenomatous polyps on last colonoscopy 3 years ago Providers: Edgardo Pike MD Referring MD: BRIANNA ARREGUIN JR, MD Requesting Provider: Medicines: Monitored Anesthesia Care Complications: No immediate complications. Procedure: Pre-Anesthesia Assessment: - Prior to the procedure, a History and Physical was performed, and patient medications and allergies were reviewed. The patient is competent. The risks and benefits of the procedure and the sedation options and risks were discussed with the patient. All questions were answered and informed consent was obtained. Patient identification and proposed procedure were verified by the physician, the nurse and the anesthesiologist in the procedure room. Mental Status Examination: alert and oriented. Airway Examination: normal oropharyngeal airway and neck mobility. Respiratory Examination: clear to auscultation. CV Examination: normal. Prophylactic Antibiotics: The patient does not require prophylactic antibiotics. Prior Anticoagulants: The patient has taken no previous anticoagulant or antiplatelet agents. ASA Grade Assessment: II - A patient with mild systemic disease. After reviewing the risks and benefits, the patient was deemed in satisfactory condition to undergo the procedure. The anesthesia plan was to use monitored anesthesia care (MAC). Immediately prior to administration of medications, the patient was re-assessed for adequacy to receive sedatives. The heart rate, respiratory rate, oxygen saturations, blood pressure, adequacy of pulmonary ventilation, and response to care were monitored throughout the procedure. The physical status of the patient was re-assessed after the procedure. The Colonoscope was introduced through the anus and advanced to the terminal ileum, with identification of the appendiceal orifice and IC valve. Findings: The perianal and digital rectal examinations were normal. The terminal ileum appeared normal. Normal mucosa was found in the entire colon. Non-bleeding external and internal hemorrhoids were found during retroflexion. The hemorrhoids were medium-sized. Impression: - The examined portion of the ileum was normal. - Normal mucosa in the entire examined colon. - Non-bleeding external and internal hemorrhoids. - No specimens collected. Recommendation: - Patient has a contact number available for emergencies. The signs and symptoms of potential delayed complications were discussed with the patient. Return to normal activities tomorrow. Written discharge instructions were provided to the patient. - High fiber diet. - Continue present medications. - Preparation H ointment: Apply externally daily for 5 days. - Repeat colonoscopy in 5 years for screening purposes and due to personal history of colon polyps in past Colonoscopy. - Return to GI clinic if persistent symptoms or new symptoms. - Return to primary care physician. Procedure Code(s): --- Professional --- 23445, Colonoscopy, flexible; diagnostic, including collection of specimen(s) by brushing or washing, when performed (separate procedure) Diagnosis Code(s): --- Professional --- K64.8, Other hemorrhoids Z86.010, Personal history of colonic polyps CPT copyright 2019 [employer]. All rights reserved. The codes documented in this report are preliminary and upon lineman service or work dispatcher review may be revised to meet current compliance requirements. Edgardo Pike MD Edgardo Pike MD 02/05/2021 10:02:13 AM Electronically signed by Edgardo Pike MD Number of Addenda: 0 Note Initiated On: 02/05/2021 8:59 AM Estimated Blood Loss: Estimated blood loss was minimal.
[2021-02-05 10:10] VITALS: BP 185/92
== END 2021-02-05 10:19 | disposition home or self-care (01) ==
LOC: M OPP 07:52
PROVIDERS: ATTEND Internal Medicine Gastroenterology
DX: Z12.11 Encounter for screening for malignant neoplasm of colon (principal); Z86.010 Personal history of colon polyps; K64.8 Other hemorrhoids; K22.8 Other specified diseases of esophagus; K28.9 Gastrojejunal ulcer, unspecified as acute or chronic, without hemorrhage or perforation; Z98.84 Bariatric surgery status; R10.13 Epigastric pain; Z79.899 Other long term (current) drug therapy; Z88.2 Allergy status to sulfonamides

== ENCOUNTER → 2021-02-23 | Outpatient (REF) | payer MEDICARE ==
[~2021-02-23] MED LIST changes: +FAMO40TA3 PO; -NS 1,000 ML IV ONE; +OMEP40CA4; -OMEP40CA97
[2021-02-23 13:08] LABS: MAGNESIUM LEVEL 2.5 MG/DL (1.8-2.4)
[2021-02-23 13:11] LABS: TOTAL 25(OH) VITAMIN D 16.4 NG/ML (30.0-100.0)
== END ==
LOC: M SFHCRHEU 10:19
PROVIDERS: ATTEND Internal Medicine
DX: M79.10 Myalgia, unspecified site (principal); M25.559 Pain in unspecified hip; Z79.899 Other long term (current) drug therapy
CPT/HCPCS: 82306; 82550; 82607; 83540; 83735; 84100; G0463

== ENCOUNTER → 2021-03-09 | Outpatient (CLI) | payer MEDICARE ==
[~2021-03-09] MED LIST changes: -MONT10TA10; +MONT10TA97; -OMEP-221; +OMEP40CA5
== END ==
LOC: M WUC 09:55
PROVIDERS: ATTEND Internal Medicine
DX: M17.10 Unilateral primary osteoarthritis, unspecified knee (principal); M25.559 Pain in unspecified hip

== ENCOUNTER → 2021-03-31 | Outpatient (CLI) | payer MEDICARE ==
[~2021-03-31] MED LIST changes: +MONT10TA10; -MONT10TA97; +OMEP-221; -OMEP40CA5
[2021-03-31 12:25] LABS: HEMATOCRIT 41.9 % (36.0-47.0); HEMOGLOBIN 13.3 g/dl (12.0-15.5); MEAN CORPUSCULAR HEMOGLOBIN 29.6 pg (27.0-33.0); MEAN CORPUSCULAR HGB CONC 31.7 g/dl (32.0-36.5); MEAN CORPUSCULAR VOLUME 93.3 fl (80.0-96.0); PLATELET COUNT, AUTOMATED 274 10^3/uL (150-450); RED BLOOD COUNT 4.49 10^6/uL (4.00-5.40); WHITE BLOOD COUNT 7.2 10^3/uL (4.0-10.0)
[2021-03-31 13:05] LABS: ALBUMIN 3.9 GM/DL (3.2-5.2); ALT/SGPT 19 U/L (12-78); BILIRUBIN,TOTAL 0.9 MG/DL (0.2-1.0); BLOOD UREA NITROGEN 21 MG/DL (7-18); CALCIUM LEVEL 9.2 MG/DL (8.8-10.2); CARBON DIOXIDE LEVEL 26 MEQ/L (21-32); CHLORIDE LEVEL 106 MEQ/L (98-107); CREATININE FOR GFR 0.86 MG/DL (0.55-1.30); FREE T4 0.87 NG/DL (0.76-1.46); GLOMERULAR FILTRATION RATE > 60.0 (>45); GLUCOSE, FASTING 86 MG/DL (70-100); POTASSIUM SERUM 4.4 MEQ/L (3.5-5.1); SODIUM LEVEL 139 MEQ/L (136-145); TOTAL PROTEIN 7.2 GM/DL (6.4-8.2)
[2021-03-31 13:08] LABS: TOTAL 25(OH) VITAMIN D 52.7 NG/ML (30.0-100.0)
[2021-03-31 13:19] LABS: HEPATITIS B SURFACE ANTIGEN NEGATIVE (NEGATIVE)
[2021-03-31 13:45] LABS: HEPATITIS C VIRUS ABY INDEX 0.1 INDEX (<0.8)
[2021-03-31 13:46] LABS: HEPATITIS B CORE ANTIBODY IGM NEGATIVE (NEGATIVE)
[2021-03-31 13:49] LABS: HEPATITIS A ANTIBODY IGM NEGATIVE (NEGATIVE)
== END ==
LOC: M LAB 11:18
PROVIDERS: ATTEND Physician Assistant
DX: R21 Rash and other nonspecific skin eruption (principal); Z79.899 Other long term (current) drug therapy

== ENCOUNTER → 2021-06-04 | Outpatient (CLI) | payer MEDICARE ==
--- NOTE | 2021-06-04 13:05 | REPMRS ---
Patient History The patient states she had a clinical breast exam in April 2021. Benign core biopsy of the right breast, 2011. Took hormonal contraceptives for 6 months. Took estrogen for 7 years. Took progesterone for 7 years. Patient states no breast complaints today. Patient has signed MRS History Sheet. Digital Woman Screen Mammo: June 04, 2021 - Exam #: [id number] Bilateral CC and MLO view(s) were taken. Technologist: Lilian Willis Technologist Prior study comparison: May 05, 2020, bilateral digital mammo screening bilat, performed at [facility]. April 17, 2019, bilateral digital mammo screening bilat, performed at [facility]. September 14, 2017, bilateral digital mammo screening bilat, performed at [facility]. FINDINGS: There are scattered fibroglandular densities. The Volpara volumetric breast density category is:B. There is a needle biopsy marker clip noted in the right breast. There has been no change in the appearance of the mammogram from the prior studies. There is a mild amount of scattered fibroglandular density which is fairly symmetric. There is no interval development of dominant mass, architectural distortion, or grouped microcalcification suggestive of malignancy. 3-D tomosynthesis shows no additional findings. Assessment: BI-RADS/ACR category 2 mammogram. Benign Findings. Recommendation Routine screening mammogram of both breasts in 1 year (for women over age 40). This patient's [facility] Lifetime Breast Cancer Risk is estimated at 5.9 %. This mammogram was interpreted with the aid of an FDA-approved computer-aided dectection system. Electronically Signed By: Francisco Granger MD 06/04/21 0904
== END ==
LOC: M WHC 08:05
PROVIDERS: ATTEND Advanced Practice Midwife
DX: Z12.31 Encounter for screening mammogram for malignant neoplasm of breast (principal)

== ENCOUNTER → 2021-06-22 | Outpatient (REF) | payer MEDICARE ==
[2021-06-22 13:00] LABS: PERCENT SATURATION 40.2 % (13.2-45.0)
== END ==
LOC: M LAB REF 11:14
PROVIDERS: ATTEND Internal Medicine
DX: Z98.84 Bariatric surgery status (principal)

== ENCOUNTER → 2021-09-14 | Outpatient (REF) | payer MEDICARE ==
[~2021-09-14] MED LIST changes: -MONT10TA10; +MONT10TA97; -OMEP-221; +OMEP40CA5
[2021-09-14 12:45] LABS: HEMATOCRIT 41.6 % (36.0-47.0)
[2021-09-14 14:32] LABS: PERCENT SATURATION 23.8 % (13.2-45.0); PHOSPHORUS LEVEL 3.5 MG/DL (2.5-4.9)
== END ==
LOC: M LAB REF 12:24
PROVIDERS: ATTEND Internal Medicine
DX: Z98.84 Bariatric surgery status (principal); K91.2 Postsurgical malabsorption, not elsewhere classified; Z86.39 Personal history of other endocrine, nutritional and metabolic disease

== ENCOUNTER → 2022-03-10 | Outpatient (CLI) | payer MEDICARE | LOC: M SOG 14:21 | PROVIDERS: ATTEND Orthopaedic Surgery Adult Reconstructive Orthopaedic Surgery | DX: M17.0 Bilateral primary osteoarthritis of knee (principal) ==

== ENCOUNTER → 2022-07-27 | Outpatient (CLI) | payer MEDICARE | LOC: M WHC 07:21 | PROVIDERS: ATTEND Obstetrics & Gynecology | DX: Z12.31 Encounter for screening mammogram for malignant neoplasm of breast (principal) ==

== ENCOUNTER → 2022-12-20 | Outpatient (REF) | payer MEDICARE ==
[~2022-12-20] MED LIST changes: +MONT-5 PO; -SING10TA32 PO
[2022-12-20 16:49] LABS: HEMATOCRIT 39.1 % (36.0-47.0)
[2022-12-20 16:59] LABS: PERCENT SATURATION 20.8 % (13.2-45.0); TOTAL 25(OH) VITAMIN D 28.3 NG/ML (20.0-100.0)
== END ==
LOC: M LAB REF 16:18
PROVIDERS: ATTEND Internal Medicine
DX: K91.2 Postsurgical malabsorption, not elsewhere classified (principal); Z98.84 Bariatric surgery status

== ENCOUNTER 2023-07-17 10:28 | Day surgery (SDC) | payer MEDICARE ==
[~2023-07-17] VITALS: Ht 160 cm; Wt 99.8 kg
[~2023-07-17 10:28] MED LIST changes: +ALBU90AE INH; +CEFUROXIME 1MG/0.1ML INTRACAMERAL INJ As Ordered ONE; +CYCLOPENTOLATE 1% OPHTH SOLN 2ML BTL OS SCH; +DULO-34 PO; +FLURBIPROFEN 0.03% OPHTH SOLN 2.5 ML OS SCH; +GABA-284 PO; +LIDOCAINE 1% SDV 5ML VIAL As Ordered ONE; +LR 1,000 ML IV SCH; +MECL-209 PO; -MECL1TAB31 PO; -MISO100T22; +MISO100T32; -OXCA150T21; +OXCA150T21 PO; +PHEN-239 PO; +PHENYLEPHRINE 2.5% OPHTH SOL 2ML OS SCH; +TETRACAINE 0.5% OPHTH SOLN 4ML OS SCH; +TOPI25TA10 PO
[2023-07-17] MEDS ORDERED: MIDAZOLAM INJ 2MG/2ML VIAL As Ordered ONE (12:40)
[2023-07-17] MEDS ORDERED: POVIDONE-IODINE 5% OPHTH PREP SOL 30ML As Ordered ONE (13:08)
[2023-07-17] MEDS ORDERED: hydrALAZINE 20MG/ML 1ML VIAL As Ordered ONE (13:11)
[2023-07-17 13:36] VITALS: BP 171/89; TEMP 98.9; O2SAT 96
== END 2023-07-17 14:03 | disposition home or self-care (01) ==
LOC: M SDC 10:28
PROVIDERS: ATTEND Ophthalmology
DX: H25.12 Age-related nuclear cataract, left eye (principal); J45.909 Unspecified asthma, uncomplicated; Z79.899 Other long term (current) drug therapy; Z86.718 Personal history of other venous thrombosis and embolism; Z90.710 Acquired absence of both cervix and uterus; Z98.84 Bariatric surgery status; Z88.2 Allergy status to sulfonamides; K21.9 Gastro-esophageal reflux disease without esophagitis; M26.609 Unspecified temporomandibular joint disorder, unspecified side
CPT/HCPCS: 66984; J0360; J0697; J2250; V2632

== ENCOUNTER → 2023-08-04 | Outpatient (CLI) | payer MEDICARE ==
[~2023-08-04] MED LIST changes: -CEFUROXIME 1MG/0.1ML INTRACAMERAL INJ As Ordered ONE; -CYCLOPENTOLATE 1% OPHTH SOLN 2ML BTL OS SCH; -FLURBIPROFEN 0.03% OPHTH SOLN 2.5 ML OS SCH; -LIDOCAINE 1% SDV 5ML VIAL As Ordered ONE; -LR 1,000 ML IV SCH; -PHENYLEPHRINE 2.5% OPHTH SOL 2ML OS SCH; -TETRACAINE 0.5% OPHTH SOLN 4ML OS SCH
== END ==
LOC: M WHC 14:21
PROVIDERS: ATTEND Obstetrics & Gynecology
DX: Z12.31 Encounter for screening mammogram for malignant neoplasm of breast (principal); R92.323 Mammographic fibroglandular density, bilateral breasts

== ENCOUNTER → 2024-03-04 | Outpatient (REF) | payer MEDICARE ==
[~2024-03-04] MED LIST changes: -ALBU90AE INH; +ALBU90AE2 INH; +ESOM1CAP20 PO; -ESOM1CAP5 PO; +ONDA-282; -ONDA4TAB6
[2024-03-04 14:39] LABS: PERCENT SATURATION 13.1 % (13.2-45.0)
== END ==
LOC: M LAB REF 13:17
PROVIDERS: ATTEND Internal Medicine
DX: Z98.84 Bariatric surgery status (principal)

== ENCOUNTER → 2024-05-10 | Outpatient (CLI) | payer MEDICARE | LOC: M PLARAD 07:41 | PROVIDERS: ATTEND Orthopaedic Surgery | DX: M75.41 Impingement syndrome of right shoulder (principal); S46.011A Strain of muscle(s) and tendon(s) of the rotator cuff of right shoulder, initial encounter; Y93.9 Activity, unspecified; Y92.9 Unspecified place or not applicable ==

== ENCOUNTER 2024-06-09 11:19 | Emergency (ER) | payer MEDICARE ==
[~2024-06-09] VITALS: Ht 160 cm; Wt 100.0 kg
[~2024-06-09 11:19] MED LIST changes: +GABA-1172 PO; -GABA-282 PO
[2024-06-09 12:08] LABS: BASO % 0.4 % (0.0-1.0); EOS # 0.2 10^3/uL (0.0-0.5); EOS % 2.5 % (0.0-3.0); HEMATOCRIT 36.4 % (36.0-47.0); HEMOGLOBIN 11.4 g/dl (12.0-15.5); LYMPH # 1.5 10^3/uL (1.5-5.0); LYMPH % 19.3 % (24.0-44.0); MEAN CORPUSCULAR HEMOGLOBIN 28.6 pg (27.0-33.0); MEAN CORPUSCULAR HGB CONC 31.3 g/dl (32.0-36.5); MEAN CORPUSCULAR VOLUME 91.5 fl (80.0-96.0); MONO # 0.5 10^3/uL (0.0-0.8); MONO % 7.1 % (2.0-8.0); NEUTROPHILS # 5.4 10^3/uL (1.5-8.5); NEUTROPHILS % 70.3 % (36.0-66.0); PLATELET COUNT, AUTOMATED 288 10^3/uL (150-450); RED BLOOD COUNT 3.98 10^6/uL (4.00-5.40); WHITE BLOOD COUNT 7.6 10^3/uL (4.0-10.0)
[2024-06-09 12:20] LABS: INR 1.04; PROTHROMBIN TIME 13.3 SECONDS (12.5-14.5)
[2024-06-09 12:45] LABS: D-DIMER QUANT 0.74 ug/mL (<0.5)
[2024-06-09 12:47] LABS: ALBUMIN 3.5 G/DL (3.2-5.2); BILIRUBIN,DIRECT 0.2 MG/DL (<0.4); BILIRUBIN,TOTAL 0.5 MG/DL (0.3-1.2); TOTAL PROTEIN 6.5 G/DL (5.7-8.2)
[2024-06-09] MEDS ORDERED: ISOVUE-370 76% 100ML VIAL As Ordered ONE (13:03)
[2024-06-09] MEDS ORDERED: KETOROLAC 30 MG/ML 1ML VIAL IM ONE (14:00)
[2024-06-09] MEDS: PANTOPRAZOLE 40MG VIAL IV ONE (14:04)
[2024-06-09] MEDS: KETOROLAC 30 MG/ML 1ML VIAL IV ONE (14:05)
[2024-06-09] MEDS: ACETAMINOPHEN 500 MG TAB PO ONE (14:05)
[2024-06-09 14:28] VITALS: BP 165/86; TEMP 97.8; O2SAT 98
== END 2024-06-09 14:38 | disposition home or self-care (01) ==
LOC: M ED 11:19
DX: S22.32XA Fracture of one rib, left side, initial encounter for closed fracture (principal); W01.198A Fall on same level from slipping, tripping and stumbling with subsequent striking against other object, initial encounter; J98.11 Atelectasis; K76.0 Fatty (change of) liver, not elsewhere classified; K21.9 Gastro-esophageal reflux disease without esophagitis; H81.4 Vertigo of central origin; F32.A Depression, unspecified; Z88.2 Allergy status to sulfonamides; Z98.84 Bariatric surgery status; Y92.009 Unspecified place in unspecified non-institutional (private) residence as the place of occurrence of the external cause; Y93.K9 Activity, other involving animal care; Y99.9 Unspecified external cause status; Z79.52 Long term (current) use of systemic steroids; Z79.83 Long term (current) use of bisphosphonates; Z79.899 Other long term (current) drug therapy; Z79.1 Long term (current) use of non-steroidal anti-inflammatories (NSAID)
CPT/HCPCS: 71046; 71275; 74177; 80047; 80076; 83690; 85025; 85379; 85610; 85730; 96374; 96375; 99284; J1885; J2470; Q9967

== ENCOUNTER → 2024-08-05 | Outpatient (CLI) | payer MEDICARE | LOC: M WHC 08:14 | PROVIDERS: ATTEND Obstetrics & Gynecology | DX: Z12.31 Encounter for screening mammogram for malignant neoplasm of breast (principal); Z13.820 Encounter for screening for osteoporosis; M85.852 Other specified disorders of bone density and structure, left thigh; N63.11 Unspecified lump in the right breast, upper outer quadrant ==

== ENCOUNTER → 2024-08-27 | Outpatient (CLI) | payer MEDICARE | LOC: M WHC 10:18 | PROVIDERS: ATTEND Obstetrics & Gynecology | DX: Z12.31 Encounter for screening mammogram for malignant neoplasm of breast (principal) | CPT/HCPCS: 77065; G0279 ==

== ENCOUNTER → 2024-11-20 | Outpatient (CLI) | payer MEDICARE | LOC: M SOG 07:54 | PROVIDERS: ATTEND Orthopaedic Surgery | DX: M25.561 Pain in right knee (principal); M17.12 Unilateral primary osteoarthritis, left knee ==

== ENCOUNTER → 2025-04-10 | Outpatient (CLI) | payer MEDICARE ==
[~2025-04-10] MED LIST changes: +ALBU2.5V10 INH; +BUDE10.7 IH; -FLOM0.4C39 PO; -PHEN-239 PO; +PHEN37.511 PO; +TAMS-18 PO; +TOPI-256 PO; -TOPI25TA10 PO
[2025-04-10 09:16] LABS: ESTIMATED AVERAGE GLUCOSE 111.0 MG/DL (60-110)
[2025-04-10 09:43] LABS: THYROXINE (T4) 5.9 UG/DL (4.5-10.9)
[2025-04-10 09:44] LABS: CORTISOL AM 11.1 UG/DL (4.3-22.4); T UPTAKE 47.3 % (22.5-37.0)
[2025-04-11 13:17] LABS: INSULIN TOTAL2 14.8 uIU/mL (<=18.4)
== END ==
LOC: M LAB 08:21
PROVIDERS: ATTEND Surgery
DX: R10.84 Generalized abdominal pain (principal); R63.5 Abnormal weight gain; Z79.899 Other long term (current) drug therapy

== ENCOUNTER → 2025-04-11 | Outpatient (CLI) | payer MEDICARE | LOC: M LAB 06:14 | PROVIDERS: ATTEND Surgery | DX: R10.84 Generalized abdominal pain (principal); R63.5 Abnormal weight gain ==

== ENCOUNTER 2025-04-21 06:50 | Day surgery (SDC) | payer MEDICARE ==
[~2025-04-21] VITALS: Ht 160 cm; Wt 105.9 kg
[2025-04-21 08:12] VITALS: TEMP 97.5
[2025-04-21] MEDS ORDERED: LIDOCAINE 2% 100 MG/5 ML SDV (FOR ANES.) As Ordered ONE (08:15)
[2025-04-21 08:33] VITALS: BP 108/80; O2SAT 97
== END 2025-04-21 08:50 | disposition home or self-care (01) ==
LOC: M OPP 06:50
PROVIDERS: ATTEND Surgery
DX: R10.84 Generalized abdominal pain (principal); Z98.84 Bariatric surgery status; Z86.73 Personal history of transient ischemic attack (TIA), and cerebral infarction without residual deficits; Z88.2 Allergy status to sulfonamides; Z79.51 Long term (current) use of inhaled steroids; Z79.899 Other long term (current) drug therapy; J45.909 Unspecified asthma, uncomplicated
CPT/HCPCS: 43235; J3010

== ENCOUNTER → 2025-05-29 | Outpatient (REF) | payer MEDICARE ==
[2025-05-29 12:48] LABS: IRON (FE) 47.0 UG/DL (50-170); PERCENT SATURATION 12.0 % (13.2-45.0); PHOSPHORUS LEVEL 3.8 MG/DL (2.4-5.1)
[2025-05-29 12:50] LABS: TOTAL 25(OH) VITAMIN D 20.4 NG/ML (20.0-100.0)
[2025-05-29 12:51] LABS: VITAMIN B12 LEVEL 280.0 PG/ML (211-911)
== END ==
LOC: M LAB REF 12:11
PROVIDERS: ATTEND Internal Medicine
DX: Z98.84 Bariatric surgery status (principal); Z79.899 Other long term (current) drug therapy